=== PATIENT | female | born 1955 | race Asian ===

== ENCOUNTER 2017-07-03 13:26 | Emergency (ER) | payer BC ==
[~2017-07-03] VITALS: Ht 172.7 cm; Wt 63.5 kg
--- NOTE | 2017-07-03 13:30 | NUR ---
Patient to ER bed 2 to gown for evaluation. Side rails up. Report given to Jai PERDOMO.
--- NOTE | 2017-07-03 13:35 | NUR ---
ER at bedside examining patient.
--- NOTE | 2017-07-03 13:40 | NUR ---
Pt presents to ER c/o severe dizziness & vomiting that started this morning. Pt denies significant medical history or medication use. Pt is AOX4 but non-compliant due to severe vertigo. NKDA. Pt is non-Hebrew speaking but family at bedside providing translation.
[2017-07-03] MEDS ORDERED: METOCLOPRAMIDE HCL 10 MG/2 ML VIAL IVP ONE (13:45)
[2017-07-03] MEDS ORDERED: MECLIZINE HCL 25 MG TABLET (ANITVERT) PO ONE (13:45)
--- NOTE | 2017-07-03 14:20 | NUR ---
# 22 gauge angiocath placed to R forearm. Use of asceptic technique. Opsite placed over site. Blood return noted. Blood for lab drawn from site. Flushed with 10 cc of normal saline. No evidence of infiltration noted. Patient tolerated well.
--- NOTE | 2017-07-03 14:26 | NUR ---
Pt medicated tolerated well.Continuing to monitor.
--- NOTE | 2017-07-03 14:27 | NUR ---
Pt medicated for dizziness and nausea. Pt tolerated well.
[2017-07-03 14:30] LABS: BASOPHILS % (AUTO) 0.4 % (0.0-2.0); EOSINOPHILS % (AUTO) 0.2 % (0.0-4.0); HEMATOCRIT 39.6 % (36-48); HEMOGLOBIN 13.3 g/dL (12.0-16.0); LYMPHOCYTES # (AUTO) 1.1 K/uL (1.0-5.5); LYMPHOCYTES % (AUTO) 15.5 % (20.5-51.5); MEAN CORPUSCULAR HEMOGLOBIN 30 pg (27-31); MEAN CORPUSCULAR HGB CONC 34 % (32-36); MEAN CORPUSCULAR VOLUME 91 fL (79.0-98.0); MONOCYTES # (AUTO) 0.3 K/uL (0.0-1.0); MONOCYTES % (AUTO) 3.8 % (1.7-9.3); NEUTROPHILS # (AUTO) 5.6 K/uL (1.8-7.7); NEUTROPHILS % (AUTO) 80.1 % (40.0-70.0); PLATELET COUNT (AUTO) 174 K/uL (130-430); RED BLOOD CELL COUNT(AUTO) 4.37 MIL/uL (4.2-6.2); RED CELL DISTRIBUTION WIDTH 12.3 % (9.0-15.0)
[2017-07-03 14:35] LABS: CALCIUM 8.9 mg/dL (8.4-11.0); CREATININE 0.68 mg/dL (0.55-1.30)
[2017-07-03 14:39] LABS: TOTAL BILIRUBIN 0.6 mg/dL (0.0-1.0)
[2017-07-03 14:54] LABS: PROTHROMBIN TIME 10.4 SECS (9.5-12.5)
[2017-07-03] MEDS ORDERED: MORPHINE 4 MG/ML INJ. SYRINGE IVP ONE (15:00)
[2017-07-03] MEDS ORDERED: PROMETHAZINE HCL 25 MG/ML AMP IVP ONE (15:00)
--- NOTE | 2017-07-03 15:10 | NUR ---
Pt medicated and tolerated well. Will continue to monitor.
--- NOTE | 2017-07-03 15:15 | NUR ---
Patient transported to radiology via gurney, accompanied by rad staff.
--- NOTE | 2017-07-03 15:55 | NUR ---
Pt reassessed and pt states dizziness and nausea have resolved.
[2017-07-03] MEDS ORDERED: ASPIRIN 325 MG TABLET (ECOTRIN) PO ONE (16:00)
--- NOTE | 2017-07-03 16:05 | NUR ---
Pt medicated and tolerated well. Pt ready for discharge.
[2017-07-03 16:10] VITALS: BP_SYST 118
--- NOTE | 2017-07-03 16:10 | NUR ---
Patient given written and verbal discharge instructions and verbalizes understanding. ER MD discussed with patient the results and treatment provided. Patient in stable condition. ID arm band removed. IV catheter removed intact and dressing applied, no active bleeding. Rx of Meclezine given. Patient educated on pain management and to follow up with PMD. Pain Scale 0/10. Opportunity for questions provided and answered.
== END 2017-07-03 16:00 | disposition home or self-care (01) ==
LOC: SED 13:26
DX: R42 Dizziness and giddiness (principal)
CPT/HCPCS: 36415; 70450; 71010; 80053; 82550; 83880; 84484; 85025; 85610; 85730; 93005; 96374; 96375; 99285; J2550; J2765; J8597

== ENCOUNTER 2017-09-04 14:00 | Emergency (ER) | payer BC ==
[~2017-09-04] VITALS: Ht 167.6 cm; Wt 61.2 kg
[2017-09-04 14:34] VITALS: BP_SYST 130
--- NOTE | 2017-09-04 15:34 | NUR ---
Patient to ER bed 3 to gown for evaluation. Side rails up. Report given to Alonso PERDOMO.
--- NOTE | 2017-09-04 15:35 | NUR ---
Pt complains of dizziness for about 3 days. Pt states she thinks it's "vertigo." Per patient, she feels weak and had vomited once this morning. Pt also states she feels numbness to right extremity. No other injuries/complaints per patient or noted. Daughter at bedside.
--- NOTE | 2017-09-04 15:40 | NUR ---
ER Dr. Aleln at bedside examining patient.
--- NOTE | 2017-09-04 15:47 | NUR ---
Radiology at patient bedside, pt tolerated well.
[2017-09-04] MEDS ORDERED: NACL 0.9% 1,000 ML IV ONE (16:00)
[2017-09-04] MEDS ORDERED: METOCLOPRAMIDE HCL 10 MG/2 ML VIAL IVP ONE (16:30)
--- NOTE | 2017-09-04 16:38 | NUR ---
Pt resting comfortably in hospital bed. No acute distress. Will continue to monitor.
[2017-09-04 16:43] LABS: HEMATOCRIT 39.6 % (36-48); HEMOGLOBIN 13.4 g/dL (12.0-16.0); MEAN CORPUSCULAR HEMOGLOBIN 30 pg (27-31); MEAN CORPUSCULAR HGB CONC 34 % (32-36); MEAN CORPUSCULAR VOLUME 89 fL (79.0-98.0); PLATELET COUNT (AUTO) 201 K/uL (130-430); RED BLOOD CELL COUNT(AUTO) 4.45 MIL/uL (4.2-6.2); RED CELL DISTRIBUTION WIDTH 12.9 % (9.0-15.0); WHITE BLOOD COUNT (AUTO) 3.2 K/uL (4.8-10.8)
[2017-09-04 16:59] LABS: ANION GAP 3 (5-15); CALCIUM 9.3 mg/dL (8.4-11.0); CHLORIDE 104 mmol/L (98-107); CREATININE 0.57 mg/dL (0.55-1.30); GLUCOSE 118 mg/dL (70-99); POTASSIUM 3.9 mmol/L (3.5-5.1); SODIUM SERUM 140 mmol/L (136-145); UREA NITROGEN, BLOOD 14 mg/dL (8-21)
--- NOTE | 2017-09-04 17:00 | NUR ---
Pt refused medications. Travis Morrell NP.
[2017-09-04 17:08] LABS: ALANINE AMINOTRANSFERASE 40 U/L (12-78); ALBUMIN 3.7 g/dL (3.4-4.8); ASPARTATE AMINOTRANSFERASE 21 U/L (10-37); TOTAL BILIRUBIN 0.5 mg/dL (0.0-1.0)
[2017-09-04 17:12] LABS: GFR AFRICAN AMERICAN 139 mL/min (>90)
[2017-09-04 17:13] LABS: BAND % (MANUAL) 3 % (0-6); BASOPHILS % (MANUAL) 0 % (0-2); EOSINOPHILS % (MANUAL) 1 % (0-7); LYMPHOCYTES % (MANUAL) 30 % (20-46); MONOCYTES % (MANUAL) 12 % (0-11)
--- NOTE | 2017-09-04 17:28 | NUR ---
Urine and influenza swab obtained. Sent to LAB.
[2017-09-04 17:31] LABS: BILIRUBIN,URINE NEGATIVE (NEGATIVE); BLOOD, URINE NEGATIVE (NEGATIVE); CLARITY/URINE CLEAR (CLEAR); COLOR,URINE YELLOW (YELLOW); GLUCOSE,URINE NEGATIVE (NEGATIVE); KETONES,URINE NEGATIVE (NEGATIVE); LEUKOCYTE ESTERASE ,URINE TRACE (NEGATIVE); NITRITE, URINE NEGATIVE (NEGATIVE); PH,URINE 5.5 (5.0-8.0); PROTEIN URINE NEGATIVE (NEGATIVE); UROBILINOGEN,URINE 0.2 (0.2-1.0)
[2017-09-04 17:42] LABS: BACTERIA,URINE FEW /HPF (None Seen); RBC,URINE 0-3 /HPF (0-3)
[2017-09-04 18:03] VITALS: BP_SYST 120
--- NOTE | 2017-09-04 18:03 | NUR ---
Patient given written and verbal discharge instructions and verbalizes understanding. ER MD discussed with patient the results and treatment provided. Patient in stable condition. ID arm band removed. IV catheter removed intact and dressing applied, no active bleeding. Rx of Zofran, Meclizine, Cipro given. Patient educated on pain management and to follow up with PMD. Pain Scale 0. Opportunity for questions provided and answered.
== END 2017-09-04 18:03 | disposition home or self-care (01) ==
LOC: SED 14:00
DX: N39.0 Urinary tract infection, site not specified (principal); R42 Dizziness and giddiness; R03.0 Elevated blood-pressure reading, without diagnosis of hypertension
CPT/HCPCS: 36415; 70450; 71045; 80053; 81000; 84484; 85007; 85027; 86710; 87086; 93005; 99284; J7030

== ENCOUNTER 2021-01-01 15:02 | Emergency (ER) | payer BC ==
[~2021-01-01] VITALS: Ht 167.6 cm; Wt 65.8 kg
[2021-01-01 15:22] VITALS: BP_SYST 107
[2021-01-01] MEDS ORDERED: ACET325T PO (16:59)
[2021-01-01] MEDS ORDERED: POLY17PO20 PO (16:59)
[2021-01-01] MEDS ORDERED: IBUP-1968 PO (16:59)
[2021-01-01 17:10] VITALS: BP_SYST 107
== END 2021-01-01 17:10 | disposition home or self-care (01) ==
LOC: SED 15:02
DX: K64.4 Residual hemorrhoidal skin tags (principal); K62.89 Other specified diseases of anus and rectum
CPT/HCPCS: 99281